=== PATIENT | male | born 1945 | race Caucasian/White ===

== ENCOUNTER 2024-08-11 08:25 | Day surgery (SDC) | payer MEDICARE ==
[2024-08-11] MEDS ORDERED: Sodium Chloride 0.9% 10 ML Syringe FLUSH PRN (08:45)
[2024-08-11] MEDS: Lactated Ringers 1,000 ML IV SCH (09:03)
[2024-08-11] MEDS ORDERED: Midazolam 1 MG/ML 2 ML SDV ONE (09:16)
[2024-08-11] MEDS ORDERED: Propofol 200 MG/20 ML SDV ONE (09:16)
[2024-08-11 12:19] VITALS: BP 127/70; PULSE 68
== END 2024-08-11 12:10 | disposition home or self-care (01) ==
LOC: EDSEX → KA.SDS 08:25
PROVIDERS: ATTEND Family Medicine
DX: Z12.11 Encounter for screening for malignant neoplasm of colon (principal); K63.5 Polyp of colon; K57.30 Diverticulosis of large intestine without perforation or abscess without bleeding; K64.8 Other hemorrhoids; I10 Essential (primary) hypertension; E78.2 Mixed hyperlipidemia; E03.9 Hypothyroidism, unspecified; K21.9 Gastro-esophageal reflux disease without esophagitis; F31.9 Bipolar disorder, unspecified
CPT/HCPCS: 00811; 99100; J2250; J2704; J7120